=== PATIENT | female | born 1930 | race African-American/Black ===

== ENCOUNTER 2016-09-09 11:12 | Inpatient (IN) | payer OTHER, MEDICAID ==
[~2016-09-09] VITALS: Ht 162.6 cm; Wt 71.9 kg
[~2016-09-09 11:12] MED LIST: AMLO10TA4 PO; ASPI-1159 PO; ATOR20TA65 PO; LINA5TAB PO; METH4TAB17 PO; OMEP20CA10 PO; TRAM50TA3 PO
[2016-09-09 11:58] LABS: BASOPHILS % 0.5 % (0.0-2.0); EOSINOPHILS % 0.7 % (0.0-5.0); HEMATOCRIT. 31.7 % (36.0-48.0); HEMOGLOBIN. 9.9 g/dL (12.0-16.0); LYMPHOCYTES % 7.9 % (20.0-50.0); MEAN CORPUSCULAR HEMOGLOBIN 24.1 pg (28.0-32.0); MEAN CORPUSCULAR VOLUME 77.6 fL (81.0-99.0); MEAN PLATELET VOLUME 7.2 fl (7.4-10.4); MONOCYTES % 9.7 % (2.0-8.0); NEUTROPHILS % 81.2 % (40.0-76.0); PLATELET 276 x1000/uL (130-400); RED BLOOD CELL COUNT 4.08 mill/uL (4.2-5.4); RED CELL DISTRIBUTION WIDTH 18.6 % (11.6-14.6)
[2016-09-09 12:15] LABS: CARBON DIOXIDE 26 mEq/L (21-32); CHLORIDE 104 mEq/L (98-107); TROPONIN I 0.16 ng/mL (0.00-0.04)
[2016-09-09 12:30] LABS: CLARITY URINE CLOUDY (CLEAR); COLOR URINE YELLOW (YELLOW); GLUCOSE URINE NEGATIVE (NEGATIVE); KETONES URINE NEGATIVE (NEGATIVE); LEUKOCYTE ESTERASE URINE 2+ (NEGATIVE); NITRITE URINE NEGATIVE (NEGATIVE); OCCULT BLOOD URINE NEGATIVE (NEGATIVE); PH URINE 5.5 (4.5-8.0); PROTEIN URINE NEGATIVE (NEGATIVE); SPECIFIC GRAVITY URINE 1.014 (1.005-1.030)
[2016-09-09] MEDS ORDERED: ASPIRIN 325MG EC TABLET PO ONE (13:15)
[2016-09-09] MEDS ORDERED: AZITHROMYCIN 500 MG in DEXT 5% WATER 250 ML IV SCH (13:15)
[2016-09-09] MEDS ORDERED: FUROSEMIDE 40MG/4ML VIAL IVP ONE (13:15)
[2016-09-09] MEDS ORDERED: CEFTRIAXONE 1 G PREMIX 50 ML IV ONE (13:15)
[2016-09-09 15:00] VITALS: BP 105/69
[2016-09-09] MEDS ORDERED: POTA10CA42 PO (15:32)
[2016-09-09] MEDS ORDERED: FURO20TA4 PO (15:32)
[2016-09-09] MEDS ORDERED: CLONIDINE 0.1MG TABLET PO PRN (15:45)
[2016-09-09] MEDS ORDERED: ENOXAPARIN 40MG/0.4ML SYR SUBCUT SCH (15:45)
[2016-09-09] MEDS ORDERED: ACETAMINOPHEN 325MG TABLET PO PRN (15:45)
[2016-09-09] MEDS ORDERED: ONDANSETRON HCL 4MG/2ML VIAL IV PRN (15:45)
[2016-09-09] MEDS ORDERED: HYDROCODONE/ACETAMINOPHEN 5/325MG TABLET PO PRN (15:45)
[2016-09-09 16:00] VITALS: BP 105/69
[2016-09-09] MEDS: FUROSEMIDE 40MG/4ML VIAL IV SCH (17:40)
[2016-09-09] MEDS: ENOXAPARIN 30MG/0.3ML SYR SUBCUT SCH (17:40)
[2016-09-09] MEDS ORDERED: DEXTROSE 50% WATER 50ML SYRINGE IV PRN (18:15)
[2016-09-09] MEDS ORDERED: SODIUM POLYSTYRENE SULFONATE 15 G/60 ML BOT PO NR (18:30)
[2016-09-09] MEDS ORDERED: TRAMADOL 50MG TABLET PO PRN (19:49)
[2016-09-09 20:00] VITALS: BP 118/76
[2016-09-09] MEDS: IPRATROPIUM/ALBUTEROL 0.5-3(2.5)MG/3ML NEB INH PRN (20:05)
[2016-09-09 20:27] LABS: CLARITY URINE CLEAR (CLEAR); COLOR URINE YELLOW (YELLOW); GLUCOSE URINE NEGATIVE (NEGATIVE); KETONES URINE NEGATIVE (NEGATIVE); LEUKOCYTE ESTERASE URINE 1+ (NEGATIVE); NITRITE URINE NEGATIVE (NEGATIVE); OCCULT BLOOD URINE NEGATIVE (NEGATIVE); PROTEIN URINE NEGATIVE (NEGATIVE)
[2016-09-09] MEDS: INSULIN LISPRO 100 UNITS/ML SUBCUT SCH (21:00)
[2016-09-09] MEDS: BLOOD SUGAR DIAGNOSTIC STRIP TEST SCH (21:05)
[2016-09-09 23:32] LABS: TROPONIN I 0.14 ng/mL (0.00-0.04)
[2016-09-10] VITALS: BP 121/74
[2016-09-10] MEDS: IPRATROPIUM/ALBUTEROL 0.5-3(2.5)MG/3ML NEB INH PRN (00:46)
[2016-09-10] MEDS ORDERED: FUROSEMIDE 40MG/4ML VIAL IVP NR (02:30)
[2016-09-10] MEDS ORDERED: METHYLPREDNISOLONE SOD SUCC 40 MG/ML VIAL IV NR (02:30)
[2016-09-10 04:00] VITALS: BP 119/73
[2016-09-10 05:21] LABS: HEMATOCRIT. 30.4 % (36.0-48.0); HEMOGLOBIN. 9.2 g/dL (12.0-16.0); MEAN PLATELET VOLUME 7.7 fl (7.4-10.4); PLATELET 253 x1000/uL (130-400); RED BLOOD CELL COUNT 3.85 mill/uL (4.2-5.4); RED CELL DISTRIBUTION WIDTH 18.1 % (11.6-14.6)
[2016-09-10 06:23] LABS: T4 FREE 1.39 ng/dL (0.76-1.46); TROPONIN I 0.16 ng/mL (0.00-0.04)
[2016-09-10] MEDS: BLOOD SUGAR DIAGNOSTIC STRIP TEST SCH ×4 (06:39→20:51)
[2016-09-10] MEDS: INSULIN LISPRO 100 UNITS/ML SUBCUT SCH ×4 (06:51→20:52)
[2016-09-10 07:41] LABS: BG BASE EXCESS -1.1 mmol/L (-2.0-2.0); BG CARBOXYHEMOGLOBIN 0.5 % (0.5-1.5); BG DEOXYHEMOGLOBIN 13.4 % (0.0-5.0); BG FRACTION INSPIRED OXYGEN 50; BG HCO3 ACT 23.6 mmol/L (22.0-26.0); BG METHEMOGLOBIN 0.2 % (0.0-1.5); BG OXYGEN SATURATION 86.5 % (92.0-98.5); BG OXYHEMOGLOBIN 85.9 % (94.0-97.0); BG PCO2 39.4 mmHg (35.0-45.0); BG PH 7.395 (7.350-7.450); BG PO2 55.1 mmHg (75.0-100.0); BG SAMPLE SITE LEFT BRACHIAL; BG TOTAL HEMOGLOBIN 10.3 g/dL (12.0-18.0); BG VENT MODE MASK - VENTI
[2016-09-10 08:21] VITALS: BP 119/86
[2016-09-10] MEDS: ASPIRIN 81MG EC TABLET PO SCH (09:55)
[2016-09-10] MEDS: FUROSEMIDE 40MG/4ML VIAL IV SCH (09:55)
[2016-09-10 12:41] VITALS: BP 112/71
[2016-09-10 13:58] LABS: PLATELET ESTIMATE NORMAL
[2016-09-10 16:00] VITALS: BP 126/69
[2016-09-10] MEDS: ENOXAPARIN 30MG/0.3ML SYR SUBCUT SCH (16:34)
[2016-09-10] MEDS: FUROSEMIDE 100MG/10ML VIAL IVP SCH (17:40)
[2016-09-10] MEDS: CEFTRIAXONE 1 G PREMIX 50 ML IV SCH ×2 (19:10→19:51)
[2016-09-10 20:00] VITALS: BP 113/65
[2016-09-11] VITALS: BP 112/81
[2016-09-11 04:00] VITALS: BP 122/76
[2016-09-11 05:26] LABS: HEMATOCRIT. 30.6 % (36.0-48.0); HEMOGLOBIN. 9.4 g/dL (12.0-16.0); MEAN CORPUSCULAR HEMOGLOBIN 24.1 pg (28.0-32.0); MEAN CORPUSCULAR VOLUME 78.4 fL (81.0-99.0); MEAN PLATELET VOLUME 7.9 fl (7.4-10.4); PLATELET 243 x1000/uL (130-400); RED BLOOD CELL COUNT 3.91 mill/uL (4.2-5.4); RED CELL DISTRIBUTION WIDTH 18.9 % (11.6-14.6)
[2016-09-11 05:38] LABS: CARBON DIOXIDE 28 mEq/L (21-32); CHLORIDE 103 mEq/L (98-107)
[2016-09-11] MEDS: BLOOD SUGAR DIAGNOSTIC STRIP TEST SCH ×4 (06:19→20:51)
[2016-09-11] MEDS: INSULIN LISPRO 100 UNITS/ML SUBCUT SCH ×4 (06:20→20:54)
[2016-09-11 08:00] VITALS: BP 103/74
[2016-09-11] MEDS: ASPIRIN 81MG EC TABLET PO SCH (09:00)
[2016-09-11] MEDS: FUROSEMIDE 100MG/10ML VIAL IVP SCH ×2 (09:00→16:29)
[2016-09-11 12:00] VITALS: BP 125/76
[2016-09-11 16:00] VITALS: BP 122/79
[2016-09-11] MEDS: ENOXAPARIN 30MG/0.3ML SYR SUBCUT SCH (16:29)
[2016-09-11] MEDS: CEFTRIAXONE 1 G PREMIX 50 ML IV SCH (18:30)
[2016-09-11 20:00] VITALS: BP 126/71
[2016-09-11 20:27] LABS: INR 1.2; PARTIAL THROMBOPLASTIN TIME 24.5 sec (24.0-34.0); PROTHROMBIN TIME 12.5 sec
[2016-09-11] MEDS ORDERED: TEMAZEPAM 15MG CAPSULE PO PRN (21:00)
[2016-09-12] VITALS (8 sets, daily range): BP systolic 112–124; BP diastolic 60–77
[2016-09-12] MEDS ORDERED: VITAMINS A AND D OINT TUBE TOP PRN (02:30)
[2016-09-12] MEDS: BLOOD SUGAR DIAGNOSTIC STRIP TEST SCH ×4 (06:25→21:00)
[2016-09-12] MEDS: INSULIN LISPRO 100 UNITS/ML SUBCUT SCH ×4 (06:25→21:00)
[2016-09-12] MEDS: FUROSEMIDE 100MG/10ML VIAL IVP SCH ×2 (08:13→16:47)
[2016-09-12] MEDS: ASPIRIN 81MG EC TABLET PO SCH (08:13)
[2016-09-12] MEDS: VITAMINS A AND D OINT TUBE TOP SCH (08:13)
[2016-09-12 08:38] LABS: PLATELET ESTIMATE NORMAL
[2016-09-12 14:50] LABS: BG BASE EXCESS -2.8 mmol/L (-2.0-2.0); BG CARBOXYHEMOGLOBIN 0.3 % (0.5-1.5); BG FRACTION INSPIRED OXYGEN 100; BG HCO3 ACT 24.7 mmol/L (22.0-26.0); BG METHEMOGLOBIN 0.3 % (0.0-1.5); BG OXYGEN SATURATION 88.9 % (92.0-98.5); BG OXYHEMOGLOBIN 88.4 % (94.0-97.0); BG PCO2 56.5 mmHg (35.0-45.0); BG PH 7.258 (7.350-7.450); BG PO2 64.4 mmHg (75.0-100.0); BG SAMPLE SITE LEFT BRACHIAL; BG TOTAL HEMOGLOBIN 10.3 g/dL (12.0-18.0); BG VENT MODE MASK - NRB
[2016-09-12] MEDS: ENOXAPARIN 30MG/0.3ML SYR SUBCUT SCH (16:47)
[2016-09-12] MEDS: CEFTRIAXONE 1 G PREMIX 50 ML IV SCH (22:24)
[2016-09-13] VITALS (10 sets, daily range): BP systolic 102–126; BP diastolic 64–77
[2016-09-13 05:30] LABS: HEMATOCRIT. 30.2 % (36.0-48.0); HEMOGLOBIN. 9.3 g/dL (12.0-16.0); MEAN CORPUSCULAR HEMOGLOBIN 24.2 pg (28.0-32.0); MEAN CORPUSCULAR VOLUME 78.9 fL (81.0-99.0); MEAN PLATELET VOLUME 8.2 fl (7.4-10.4); PLATELET 168 x1000/uL (130-400); RED BLOOD CELL COUNT 3.83 mill/uL (4.2-5.4); RED CELL DISTRIBUTION WIDTH 18.7 % (11.6-14.6)
[2016-09-13] MEDS: BLOOD SUGAR DIAGNOSTIC STRIP TEST SCH ×4 (06:30→21:21)
[2016-09-13] MEDS: INSULIN LISPRO 100 UNITS/ML SUBCUT SCH ×4 (06:30→21:00)
[2016-09-13] MEDS: VITAMINS A AND D OINT TUBE TOP SCH (08:00)
[2016-09-13] MEDS: FUROSEMIDE 100MG/10ML VIAL IVP SCH ×2 (08:00→14:31)
[2016-09-13 11:18] LABS: PLATELET ESTIMATE NORMAL
[2016-09-13] MEDS: ENOXAPARIN 30MG/0.3ML SYR SUBCUT SCH ×2 (16:59→23:52)
[2016-09-13] MEDS: CEFTRIAXONE 1 G PREMIX 50 ML IV SCH (23:46)
[2016-09-14] VITALS (16 sets, daily range): BP systolic 99–136; BP diastolic 52–85
[2016-09-14] MEDS: BLOOD SUGAR DIAGNOSTIC STRIP TEST SCH ×4 (06:11→21:08)
[2016-09-14] MEDS: INSULIN LISPRO 100 UNITS/ML SUBCUT SCH ×5 (06:11→21:18)
[2016-09-14 06:50] LABS: HEMATOCRIT. 30.4 % (36.0-48.0); HEMOGLOBIN. 9.4 g/dL (12.0-16.0); MEAN CORPUSCULAR HEMOGLOBIN 24.1 pg (28.0-32.0); MEAN CORPUSCULAR VOLUME 77.9 fL (81.0-99.0); MEAN PLATELET VOLUME 8.9 fl (7.4-10.4); PLATELET 144 x1000/uL (130-400); RED CELL DISTRIBUTION WIDTH 18.8 % (11.6-14.6)
[2016-09-14] MEDS: VITAMINS A AND D OINT TUBE TOP SCH (08:43)
[2016-09-14] MEDS: FUROSEMIDE 100MG/10ML VIAL IVP SCH (09:00)
[2016-09-14] MEDS: FUROSEMIDE 40MG TABLET PO SCH ×2 (11:31→20:11)
[2016-09-14] MEDS: AMLODIPINE 2.5MG TABLET PO SCH (11:32)
[2016-09-14 12:46] LABS: NUCLEATED RED BLOOD CELLS 2 /100 WBC
[2016-09-14 12:48] LABS: PLATELET ESTIMATE NORMAL
[2016-09-14] MEDS: CARVEDILOL 3.125 MG TABLET PO SCH ×2 (15:22→21:00)
[2016-09-14] MEDS: CEFTRIAXONE 1 G PREMIX 50 ML IV SCH (20:00)
[2016-09-15] VITALS (15 sets, daily range): BP systolic 100–112; BP diastolic 53–65
[2016-09-15] MEDS: BLOOD SUGAR DIAGNOSTIC STRIP TEST SCH ×3 (05:49→16:50)
[2016-09-15 07:00] LABS: HEMATOCRIT. 29.7 % (36.0-48.0); HEMOGLOBIN. 9.1 g/dL (12.0-16.0); MEAN CORPUSCULAR HEMOGLOBIN 24.1 pg (28.0-32.0); MEAN CORPUSCULAR VOLUME 78.8 fL (81.0-99.0); MEAN PLATELET VOLUME 9.2 fl (7.4-10.4); PLATELET 128 x1000/uL (130-400); RED BLOOD CELL COUNT 3.76 mill/uL (4.2-5.4); RED CELL DISTRIBUTION WIDTH 18.5 % (11.6-14.6)
[2016-09-15] MEDS: INSULIN LISPRO 100 UNITS/ML SUBCUT SCH ×3 (07:41→17:20)
[2016-09-15] MEDS: FUROSEMIDE 40MG TABLET PO SCH (08:17)
[2016-09-15] MEDS: AMLODIPINE 2.5MG TABLET PO SCH (08:18)
[2016-09-15] MEDS: CARVEDILOL 3.125 MG TABLET PO SCH (09:00)
[2016-09-15 10:13] LABS: PLATELET ESTIMATE SLIGHTLY DECREASED
[2016-09-15] MEDS: VITAMINS A AND D OINT TUBE TOP SCH (13:44)
[2016-09-15] MEDS: ENOXAPARIN 30MG/0.3ML SYR SUBCUT SCH (17:00)
== END 2016-09-15 18:20 | DRG 291 ==
LOC: ER 11:33 → OBSVTOIN 13:53 → INTOOBSV 13:53 → 5WST 13:53 → CANRESERV 14:05 → ENRESERV 14:05 → 3WST 09-12 20:09
PROVIDERS: ADMIT Internal Medicine; ATTEND Internal Medicine
DX: I13.0 Hypertensive heart and chronic kidney disease with heart failure and stage 1 through stage 4 chronic kidney disease, or unspecified chronic kidney disease (principal); I50.23 Acute on chronic systolic (congestive) heart failure; N39.0 Urinary tract infection, site not specified; I42.9 Cardiomyopathy, unspecified; D64.9 Anemia, unspecified; E11.22 Type 2 diabetes mellitus with diabetic chronic kidney disease; I08.1 Rheumatic disorders of both mitral and tricuspid valves; I27.2 Other secondary pulmonary hypertension; E11.51 Type 2 diabetes mellitus with diabetic peripheral angiopathy without gangrene; J44.9 Chronic obstructive pulmonary disease, unspecified; L89.159 Pressure ulcer of sacral region, unspecified stage; N18.3 Chronic kidney disease, stage 3 (moderate); Z88.5 Allergy status to narcotic agent; Z79.82 Long term (current) use of aspirin; Z79.899 Other long term (current) drug therapy
CPT/HCPCS: 36415; 36600; 71010; 78582; 80048; 80053; 80061; 81001; 82375; 82550; 82805; 82962; 83880; 84439; 84443; 84484; 85025; 85610; 85730; 87040; 87086; 93005; 93306; 93970; 96365; 96375; 97162; 97166; 99285; A9558; C1893; J0456; J0696; J1650; J1815; J1940; J2405; J2920; J7050; J7060; J7620; A4315